=== PATIENT | male | born 1990 | race Caucasian/White ===

== ENCOUNTER 2020-01-21 09:20 | Emergency (ER) | payer OTHER ==
[2020-01-21 09:28] VITALS: RESP 18; TEMP 98.4
--- NOTE | 2020-01-21 09:42 | ED ---
Fall [facility] - General Chief Complaint: Fall Stated Complaint: Poss Fractured Rib Time Seen by Provider: 01/21/20 09:28 Source: patient, RN notes reviewed Mode of arrival: ambulatory Limitations: no limitations - History of Present Illness Initial Comments: 29-year-old male presents emergency Department with chief complaint of fall one week ago. Patient states he fell onto a gait in his house. Patient states that he has pain along the ribs and the right side which has been worsening thrush with deep inspiration and movement. No fevers or chills. Patient states that it no bruising no hematuria. Patient offers no complaints. - Related Data Allergies Allergy/AdvReac Type Severity Reaction Status Date / Time No Known Allergies Allergy Verified 01/21/20 09:28 Review of Systems ROS Statement: Those systems with pertinent positive or pertinent negative responses have been documented in the HPI. ROS Other: All systems not noted in ROS Statement are negative. Past Medical History Past Medical History: No Reported History History of Any Multi-Drug Resistant Organisms: None Reported Past Surgical History: Tonsillectomy Past Psychological History: No Psychological Hx Reported Smoking Status: Current every day smoker Past Alcohol Use History: Occasional Past Drug Use History: None Reported General Exam Limitations: no limitations General appearance: alert, in no apparent distress Head exam: Present: atraumatic, normocephalic, normal inspection Neck exam: Present: normal inspection, full ROM. Absent: tenderness, meningi smus, lymphadenopathy Respiratory exam: Present: normal lung sounds bilaterally, chest wall tenderness (Mild right-sided lower). Absent: respiratory distress, wheezes, rales, rhonchi, stridor Cardiovascular Exam: Present: regular rate, normal rhythm, normal heart sounds. Absent: systolic murmur, diastolic murmur, rubs, gallop, clicks GI/Abdominal exam: Present: soft, normal bowel sounds. Absent: distended, tenderness, guarding, rebound, rigid Back exam: Present: full ROM. Absent: tenderness, CVA tenderness (R), CVA tenderness (L), paraspinal tenderness, vertebral tenderness Neurological exam: Present: alert, oriented X3 Skin exam: Present: warm, dry, intact, normal color. Absent: rash Course Vital Signs 01/21/20 09:25 Temperature 98.4 F Pulse Rate 69 Respiratory 18 Rate Blood Pressure 138/92 O2 Sat by Pulse 99 Oximetry Medical Decision Making - Medical Decision Making 29-year-old male presented for fall rib pain. Patient x-rays show evidence of limits rib fracture no pneumothorax. Did discuss taking workup to rule out quicker healing and decreased pain. Patient will follow-up PCP and return for any worsening symptoms. Disposition Clinical Impression: Fall, Right rib fracture Disposition: HOME SELF-CARE Condition: Stable Instructions (If sedation given, give patient instructions): Rib Fracture (ED) Additional Instructions: Please return to the Emergency Department if symptoms worsen or any other concerns. Is patient prescribed a controlled substance at d/c from ED?: No Referrals: None,Stated [Primary Care Provider] - 1-2 days Time of Disposition: 10:14
[2020-01-21 09:51] VITALS: BP 138/92; PULSE 69
--- NOTE | 2020-01-21 10:02 | XR ---
Chest x-ray with right RIBS HISTORY: Trauma and pain Frontal chest and 4 views of the right ribs submitted. Metallic posts is present in the region of the right nipple. There is no evident pneumothorax or pleu ral effusion. Cardiac mediastinal silhouette, pulmonary vascularity and samaria are within normal limits . No evident displaced rib fracture, however, there is a lucency through the posterior 11th rib on th e right seen on one view. IMPRESSION: Suspect a nondisplaced right 11th rib fracture. Bone scan could be performed if occult fr actures suspected clinically.
== END 2020-01-21 10:20 | disposition home or self-care (01) ==
LOC: EC 09:20
DX: S22.31XA Fracture of one rib, right side, initial encounter for closed fracture (principal); R26.9 Unspecified abnormalities of gait and mobility; F17.200 Nicotine dependence, unspecified, uncomplicated; W19.XXXA Unspecified fall, initial encounter; Y92.009 Unspecified place in unspecified non-institutional (private) residence as the place of occurrence of the external cause
CPT/HCPCS: 99283